=== PATIENT | male | born 2000 | race Caucasian/White ===

== ENCOUNTER 2020-03-23 17:49 | Emergency (ER) | payer MEDICAID ==
[~2020-03-23] VITALS: Ht 152.4 cm; Wt 67.1 kg
[2020-03-23 17:55] VITALS: Ht 152.4 cm; Wt 67.1 kg
[2020-03-23 20:11] VITALS: BP 116/74
== END 2020-03-23 20:11 | disposition home or self-care (01) ==
LOC: ED 17:49
DX: F15.10 Other stimulant abuse, uncomplicated (principal); R00.2 Palpitations
CPT/HCPCS: J7030; Q0092